=== PATIENT | male | born 1965 | race African-American/Black ===

== ENCOUNTER 2020-12-09 10:44 | Emergency (ER) | payer SELFPAY ==
[~2020-12-09 10:44] MED LIST: CLEOCIN HCL300 MG PO; CYCLOBENZAPRINE10 MG PO; IBUPROFEN600 MG PO; NAPROSYN500 MG PO; Viscous lidocaine 2%
[2020-12-09] MEDS ORDERED: CYCLOBENZAPRINE10 MG PO (12:31)
[2020-12-09] MEDS ORDERED: TORADOL 10 MG T10 MG PO (12:31)
== END 2020-12-09 13:38 | disposition home or self-care (01) ==
LOC: ER1 10:44
DX: S39.012A Strain of muscle, fascia and tendon of lower back, initial encounter (principal); S50.01XA Contusion of right elbow, initial encounter; F17.210 Nicotine dependence, cigarettes, uncomplicated; W19.XXXA Unspecified fall, initial encounter
CPT/HCPCS: 72131; 96372; 99284; J1885

== ENCOUNTER 2021-01-29 05:23 | Emergency (ER) | payer OTHER ==
[~2021-01-29 05:23] MED LIST changes: +TORADOL 10 MG T10 MG PO
[2021-01-29 06:28] LABS: HEMOGLOBIN 13.1 gm/dl (14.0-17.5); RED BLOOD COUNT 4.19 M/UL (4.20-5.50); WHITE BLOOD COUNT 5.2 K/UL (4.5-11.0)
[2021-01-29 07:02] LABS: BUN/CREATININE RATIO 24 (0-10)
== END 2021-01-29 07:48 | disposition home or self-care (01) ==
LOC: ER1 05:23
PROVIDERS: Family Medicine
DX: M79.672 Pain in left foot (principal); M79.671 Pain in right foot; F17.210 Nicotine dependence, cigarettes, uncomplicated
CPT/HCPCS: 36415; 80053; 83036; 85025; 99283

== ENCOUNTER → 2021-02-07 | Outpatient (CLI) | payer OTHER | LOC: KOH-I 13:59 | DX: M79.672 Pain in left foot (principal); M79.671 Pain in right foot; M19.072 Primary osteoarthritis, left ankle and foot; M19.071 Primary osteoarthritis, right ankle and foot | CPT/HCPCS: 73630 ==

== ENCOUNTER 2021-05-15 22:19 | Emergency (ER) | payer SELFPAY ==
[2021-05-15 23:51] LABS: HEMOGLOBIN 13.2 gm/dl (14.0-17.5); RED BLOOD COUNT 4.33 M/UL (4.20-5.50); WHITE BLOOD COUNT 6.6 K/UL (4.5-11.0)
[2021-05-16 00:15] LABS: BUN/CREATININE RATIO 17 (0-10)
[2021-05-16] MEDS ORDERED: LODINE CAP 300300 MG PO (03:44)
[2021-05-16] MEDS ORDERED: VENTOLIN HFA 66.7 GM INH (03:44)
[2021-05-16] MEDS ORDERED: DECADRON6 MG PO (03:44)
== END 2021-05-16 03:45 | disposition home or self-care (01) ==
LOC: ER1 22:19
PROVIDERS: Physician Assistant
DX: U07.1 COVID-19 (principal); F17.210 Nicotine dependence, cigarettes, uncomplicated; Z90.49 Acquired absence of other specified parts of digestive tract
CPT/HCPCS: 71045; 80053; 81001; 82550; 82553; 83690; 83735; 83874; 83880; 84484; 85025; 87086; 93005; 99284; U0002

== ENCOUNTER 2021-08-10 10:03 | Emergency (ER) | payer SELFPAY ==
[~2021-08-10 10:03] MED LIST changes: +DECADRON6 MG PO; +LODINE CAP 300300 MG PO; +VENTOLIN HFA 66.7 GM INH
[2021-08-10] MEDS ORDERED: NORFLEX 100 MG100 MG PO (11:31)
[2021-08-10] MEDS ORDERED: MEDROL DOSEPAK 24 MG PO (11:31)
== END 2021-08-10 12:09 | disposition home or self-care (01) ==
LOC: ER1 10:03
DX: S39.012A Strain of muscle, fascia and tendon of lower back, initial encounter (principal); F17.210 Nicotine dependence, cigarettes, uncomplicated; Z90.49 Acquired absence of other specified parts of digestive tract; X50.9XXA Other and unspecified overexertion or strenuous movements or postures, initial encounter
CPT/HCPCS: 72100; 96372; 99283; J1100; J1885

== ENCOUNTER 2021-08-12 08:32 | Emergency (ER) | payer OTHER ==
[~2021-08-12 08:32] MED LIST changes: +MEDROL DOSEPAK 24 MG PO; +NORFLEX 100 MG100 MG PO
[2021-08-12 09:42] LABS: HEMOGLOBIN 13.3 gm/dl (14.0-17.5); RED BLOOD COUNT 4.18 M/UL (4.20-5.50); WHITE BLOOD COUNT 5.4 K/UL (4.5-11.0)
[2021-08-12 10:14] LABS: BUN/CREATININE RATIO 16 (0-10)
[2021-08-12] MEDS ORDERED: DELSYM30 MG/5 ML PO (11:47)
[2021-08-12] MEDS ORDERED: IBUPROFEN600 MG PO (11:47)
[2021-08-12] MEDS ORDERED: ZOFRAN4 MG PO (11:47)
== END 2021-08-12 12:04 | disposition home or self-care (01) ==
LOC: ER1 08:32
PROVIDERS: Physician Assistant Medical
DX: B34.9 Viral infection, unspecified (principal); J06.9 Acute upper respiratory infection, unspecified; Z90.49 Acquired absence of other specified parts of digestive tract; Z20.822 Contact with and (suspected) exposure to COVID-19
CPT/HCPCS: 71045; 80053; 81001; 83690; 85025; 96374; 99283; J2405; U0002

== ENCOUNTER 2021-11-30 07:20 | Emergency (ER) | payer SELFPAY ==
[~2021-11-30 07:20] MED LIST changes: +DELSYM30 MG/5 ML PO; +ZOFRAN4 MG PO
[2021-11-30] MEDS ORDERED: CYCLOBENZAPRINE10 MG PO (08:02)
[2021-11-30] MEDS ORDERED: IBUPROFEN800 MG PO (08:02)
== END 2021-11-30 08:13 | disposition home or self-care (01) ==
LOC: ER1 07:20
DX: M54.50 Low back pain, unspecified (principal)
CPT/HCPCS: 99283

== ENCOUNTER 2021-12-22 10:22 | Emergency (ER) | payer OTHER ==
[~2021-12-22 10:22] MED LIST changes: +IBUPROFEN800 MG PO
[2021-12-22 11:24] LABS: BUN/CREATININE RATIO 13 (0-10)
[2021-12-22 11:28] LABS: HEMOGLOBIN 13.4 gm/dl (14.0-17.5); RED BLOOD COUNT 4.26 M/UL (4.20-5.50)
[2021-12-22] MEDS ORDERED: TAMIFLU 75 MG C75 MG PO (12:09)
[2021-12-22] MEDS ORDERED: MEDROL DOSEPAK 24 MG PO (12:09)
[2021-12-22] MEDS ORDERED: BENZONATATE200 MG PO (12:09)
[2021-12-22] MEDS ORDERED: ZOFRAN 4 MG TAB4 MG PO (12:17)
== END 2021-12-22 12:23 | disposition home or self-care (01) ==
LOC: ER1 10:22
PROVIDERS: Physician Assistant Medical
DX: J11.1 Influenza due to unidentified influenza virus with other respiratory manifestations (principal); R11.2 Nausea with vomiting, unspecified; F17.210 Nicotine dependence, cigarettes, uncomplicated; Z20.822 Contact with and (suspected) exposure to COVID-19
CPT/HCPCS: 0240U; 71045; 80053; 85025; 96374; 99284; J2405

== ENCOUNTER 2022-01-28 11:45 | Emergency (ER) | payer OTHER ==
[~2022-01-28 11:45] MED LIST changes: +BENZONATATE200 MG PO; +TAMIFLU 75 MG C75 MG PO; +ZOFRAN 4 MG TAB4 MG PO
[2022-01-28] MEDS ORDERED: ROBAXIN 750 MG750 MG GT (13:29)
== END 2022-01-28 15:02 | disposition home or self-care (01) ==
LOC: ER1 11:45
DX: M54.50 Low back pain, unspecified (principal); G89.29 Other chronic pain; F17.210 Nicotine dependence, cigarettes, uncomplicated
CPT/HCPCS: 72070; 99283

== ENCOUNTER 2022-03-21 15:11 | Emergency (ER) | payer MEDICAID ==
[~2022-03-21 15:11] MED LIST changes: +ROBAXIN 750 MG750 MG GT
[2022-03-21 15:31] LABS: RED BLOOD COUNT 4.5 M/UL (4.20-5.50); WHITE BLOOD COUNT 3.9 K/UL (4.5-11.0)
[2022-03-21 16:13] LABS: BUN/CREATININE RATIO 16 (0-10)
[2022-03-21] MEDS ORDERED: ZOFRAN ODT 4 MG4 MG GT (20:31)
== END 2022-03-21 20:45 | disposition home or self-care (01) ==
LOC: ER1 15:11
PROVIDERS: Emergency Medicine
DX: K52.9 Noninfective gastroenteritis and colitis, unspecified (principal); Z20.822 Contact with and (suspected) exposure to COVID-19
CPT/HCPCS: 0240U; 71045; 80053; 81001; 82550; 82553; 83690; 83735; 84484; 85025; 93005; 96374; 96376; 99284; J2405; Q9967

== ENCOUNTER 2022-04-13 01:44 | Emergency (ER) | payer SELFPAY ==
[~2022-04-13 01:44] MED LIST changes: +ZOFRAN ODT 4 MG4 MG GT
[2022-04-13] MEDS ORDERED: IBUPROFEN600 MG PO (02:35)
[2022-04-13] MEDS ORDERED: ERYTHROMYCIN O3.5 GM OD (02:35)
== END 2022-04-13 03:18 | disposition home or self-care (01) ==
LOC: ER1 01:44
DX: S05.02XA Injury of conjunctiva and corneal abrasion without foreign body, left eye, initial encounter (principal); F17.210 Nicotine dependence, cigarettes, uncomplicated; X58.XXXA Exposure to other specified factors, initial encounter
CPT/HCPCS: 90471; 90715; 99282

== ENCOUNTER 2022-05-21 10:53 | Emergency (ER) | payer SELFPAY ==
[~2022-05-21 10:53] MED LIST changes: +ERYTHROMYCIN O3.5 GM OD
== END 2022-05-21 14:47 | disposition home or self-care (01) ==
LOC: ER1 10:53
DX: J02.0 Streptococcal pharyngitis (principal); F17.210 Nicotine dependence, cigarettes, uncomplicated
CPT/HCPCS: 70490; 87081; 87880; 96372; 99283; J0561; Q9967